=== PATIENT | female | born 1955 | race Two or more races ===

== ENCOUNTER 2018-02-10 19:04 | Emergency (ER) | payer OTHER ==
--- OUTSIDE RECORDS SUMMARY | 2018-02-10 19:09 | XMS REPORT ---
:1955 External Reference #:[id number] Author Organization [employer] Address [address] [place] [address] [place] [address] Phone [phone] Care Team Providers Name Role Phone Halie Evans MD Primary Care Physician Unavailable Payers Type Date Identification Numbers Payment Provider Subscriber Commercial Expires: Policy Number: [employer] Jay Willams 2017 [id number] Group Number: [id number] [address] PayID: [id number] [place] [address] Commercial Policy Number: [id number] [employer] Jayalpesh Paez PayID: [id number] [address] [place] [address] Problems Date Description Provider Status Onset: 06/21/2015 Osteoporosis Halie Evans M.D. Active Onset: 08/13/2015 Impairment of balance July Wray M.D. 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 Every 3 Months Vitamin D / Active Capsules 1000Unit 1 po qd Unknown 0000 Zyrtec / Active Tablets 10mg 1 by mouth Unknown Allergy 0000 every day Epipen 2-Doc / Active Solution 0.3mg/0.3M 2units use as Halie 0000 Auto-Injec L directed Nathan t M.D. Alendronate / Active Tablets 70mg 12tabs take 1 Halie Sodium 0000 tablet by Cotton, mouth M.D. weekly Alendronate 07/29/ Hx Tablets 70mg 13tabs 1 tablet 733.00 Halie Sodium 2013 - once Nathan, 01/10/ weekly. M.D. 2013 take on empty stomach with 8 oz water. do not eat or lie down for 30 min after taking Nabumetone / Hx Tablets 500mg 30tabs 1 po qd prn Halie 0000 - Nathan, 04/30/ M.D. 2012 Immunizations CPT Code Status Date Vaccine Lot # [id number] Given 01/30/2018 Tetanus And Diptheria (Td) For Adult Use [id number] Preservative Free 42908 Given 04/13/2017 Influenza Virus Vaccine, Quadrivalent, Split, Preservative Free [id number] Given 01/27/2016 Flu Vaccine NOS 31305 Given 04/17/2006 Influenza Virus 3Yrs & Over 97424 Given 04/17/2006 Influenza Virus 3Yrs & Over Vital Signs Date Vital Result Comment 01/30/2018 Height 68 inches 5'8" Weight 146.00 lb Heart Rate 62 /min BP Systolic Sitting 121 mmHg BP Diastolic Sitting 77 mmHg O2 % BldC Oximetry 98 % BMI (Body Mass Index) 22.2 kg/m2 03/06/2017 Height 67 inches 5'7" Weight 148.00 lb Heart Rate 76 /min BP Systolic 112 mmHg BP Diastolic 66 mmHg Respiratory Rate 16 /min Body Temperature 96.9 F Pain Level 0 BMI (Body Mass Index) 23.2 kg/m2 01/26/2017 Height 67 inches 5'7" Weight 148.25 lb Heart Rate 65 /min BP Systolic 120 mmHg BP Diastolic 70 mmHg Body Temperature 98.3 F O2 % BldC Oximetry 98 % BMI (Body Mass Index) 23.2 kg/m2 11/02/2016 Height 67 inches 5'7" Weight 152.00 lb Heart Rate 56 /min BP Systolic Sitting 102 mmHg BP Diastolic Sitting 60 mmHg Respiratory Rate 14 /min BMI (Body Mass Index) 23.8 kg/m2 08/13/2015 Height 67 inches 5'7" Weight 140.00 lb Patient reported Heart Rate 64 /min BP Systolic Sitting 108 mmHg BP Diastolic Sitting 64 mmHg Respiratory Rate 16 /min BMI (Body Mass Index) 21.9 kg/m2 07/27/2015 Height 67 inches 5'7" Weight 140.00 lb Heart Rate 64 /min BP Systolic Sitting 108 mmHg BP Diastolic Sitting 68 mmHg Respiratory Rate 14 /min BMI (Body Mass Index) 21.9 kg/m2 06/12/2015 Height 67 inches 5'7" Weight 143.00 lb Heart Rate 66 /min BP Systolic Sitting 112 mmHg BP Diastolic Sitting 60 mmHg Respiratory Rate 15 /min Body Temperature 98.2 F O2 % BldC Oximetry 98 % BMI (Body Mass Index) 22.4 kg/m2 08/28/2014 Height 67 inches 5'7" Weight 134.00 lb Pain Level 0 BMI (Body Mass Index) 21.0 kg/m2 07/17/2014 Height 67 inches 5'7" Weight 134.00 lb Pain Level 0 BMI (Body Mass Index) 21.0 kg/m2 06/19/2014 Height 67 inches 5'7" Heart Rate 60 /min BP Systolic 114 mmHg BP Diastolic 73 mmHg 05/27/2014 Height 67 inches 5'7" Weight 135.00 lb Heart Rate 66 /min BP Systolic 107 mmHg BP Diastolic 73 mmHg BMI (Body Mass Index) 21.1 kg/m2 04/17/2014 Height 67 inches 5'7" Weight 133.00 lb Heart Rate 67 /min BP Systolic 113 mmHg BP Diastolic 70 mmHg BMI (Body Mass Index) 20.8 kg/m2 01/10/2014 Weight 135.50 lb Heart Rate 66 /min BP Systolic Sitting 108 mmHg BP Diastolic Sitting 62 mmHg Body Temperature 97.4 F 07/29/2013 Height 67 inches 5'7" Weight 134.00 lb Heart Rate 72 /min BP Systolic Sitting 100 mmHg BP Diastolic Sitting 68 mmHg Body Temperature 97.6 F BMI (Body Mass Index) 21.0 kg/m2 07/04/2013 Height 67 inches 5'7" Weight 132.00 lb Heart Rate 73 /min BP Systolic 118 mmHg BP Diastolic 69 mmHg BMI (Body Mass Index) 20.7 kg/m2 04/30/2013 Height 67 inches 5'7" Weight 132.00 lb Heart Rate 73 /min BP Systolic 126 mmHg BP Diastolic 74 mmHg BMI (Body Mass Index) 20.7 kg/m2 08/29/2011 Height 68 inches 5'8" Weight 143.00 lb Heart Rate 68 /min BP Systolic Sitting 102 mmHg BP Diastolic Sitting 60 mmHg BMI (Body Mass Index) 21.7 kg/m2 01/24/2011 Height 68 inches 5'8" Weight 141.00 lb Heart Rate 64 /min BP Systolic Sitting 112 mmHg L BP Diastolic Sitting 64 mmHg L BMI (Body Mass Index) 21.4 kg/m2 Results Test Date Test Result H/L Range Note Laboratory test finding 01/30/2018 Cytology <pending> Lipid Profile (Trig/Chol/HDL) 01/22/2018 Triglycerides 75 mg/dL 1 Cholesterol 188 mg/dL 2 HDL Cholesterol 60.9 mg/dL 3 LDL Cholesterol 112 mg/dL 4 Laboratory test finding 01/22/2018 Glucose 87 mg/dL 70-100 5 Vitamin D Total 25(Oh) 41.4 ng/mL 20-50 6 Laboratory test finding 11/03/2017 Garlic Allergen IgE <0.35 kU/L 7 Obrien Pepper Allergen IgE <0.35 kU/L 8 Rast Cow's Milk <0.35 kU/L 9 Mushroom Allergen IgE <0.35 kU/L 10 Onion Allergen IgE <0.35 kU/L 11 Sesame Seed Allergen IgE <0.35 kU/L 12 Cope Allergen IgE <0.35 kU/L 13 Fairplay Seed Allergen IgE <0.35 kU/L 14 Tomato Allergen IgE <0.35 kU/L 15 Rast Wheat <0.35 kU/L 16 Van's Yeast Allergen IgE <0.35 kU/L 17 Miscellaneous Test See Comment 18 Laboratory test finding 06/19/2015 TSH (Thyroid Stim Horm) 1.04 ?IU/mL 0.34-5.60 C Reactive Protein 2.44 mg/L < 5.00 19 Erythrocyte Sed Rate 12 mm/Hr 0-30 CBC Auto Diff 06/19/2015 White Blood Count 7.1 10^3/uL 3.5-10.8 Red Blood Count 4.21 10^6/uL 4.0-5.4 Hemoglobin 12.5 g/dL 12.0-16.0 Hematocrit 38 % 35-47 Mean Corpuscular Volume 90 fL 80-97 Mean Corpuscular Hemoglobin 30 pg 27-31 Mean Corpuscular HGB Conc 33 g/dL 31-36 Red Cell Distribution Width 13 % 10.5-15 Platelet Count 248 10^3/uL 150-450 Mean Platelet Volume 9 um3 7.4-10.4 Abs Neutrophils 4.7 10^3/uL 1.5-7.7 Abs Lymphocytes 2.0 10^3/uL 1.0-4.8 Abs Monocytes 0.4 10^3/uL 0-0.8 Abs Eosinophils 0 10^3/uL 0-0.6 Abs Basophils 0 10^3/uL 0-0.2 Abs Nucleated RBC 0 10^3/uL Granulocyte % 66.0 % 38-83 Lymphocyte % 27.7 % 25-47 Monocyte % 5.2 % 1-9 Eosinophil % 0.6 % 0-6 Basophil % 0.5 % 0-2 Nucleated Red Blood Cells % 0.1 Comp Metabolic Panel 06/19/2015 Sodium 134 mmol/L 133-145 Potassium 4.1 mmol/L 3.5-5.0 Chloride 100 mmol/L Low 101-111 Co2 Carbon Dioxide 29 mmol/L 22-32 Anion Gap 5 mmol/L 2-11 Glucose 106 mg/dL High 70-100 Blood Urea Nitrogen 18 mg/dL 6-24 Creatinine 0.73 mg/dL 0.51-0.95 BUN/Creatinine Ratio 24.7 High 8-20 Calcium 9.5 mg/dL 8.6-10.3 Total Protein 6.6 g/dL 6.4-8.9 Albumin 4.4 g/dL 3.2-5.2 Globulin 2.2 g/dL 2-4 Albumin/Globulin Ratio 2.0 1-3 Total Bilirubin 0.50 mg/dL 0.2-1.0 Alkaline Phosphatase 46 U/L 34-104 Alt 11 U/L 7-52 Ast 14 U/L 13-39 Egfr Non- 81.6 >60 Egfr 104.9 >60 20 Laboratory test 11/03/2014 Surgical Pathology SEE RESULT BELOW 21 finding Surgical Pathology 06/06/2014 S RUN DATE: <SEE NOTE> Laboratory test 07/29/2013 Cytology RUN DATE: finding <SEE NOTE> HPV High Risk 07/29/2013 Human Papillomavirus See Comment 24 Source HPV High Risk Type 16, PCR Negative Negative HPV High Risk Type 18, PCR Negative Negative HPV Other Risk types Negative Negative 25 Lipid Profile (Trig/Chol/HDL) 07/08/2013 Triglycerides 59 mg/dL 40-200 Cholesterol 185 mg/dL Less than 200 HDL Cholesterol 73 mg/dL High 40-60 26 Cholesterol/HDL Ratio 2.5 Average 1-4.44 LDL Cholesterol 100.2 High Less Than 100 27 Protein Electrophoresis 07/08/2013 Total Protein(Pep) 7.3 g/dL 6.3 - 7.9 Albumin 3.7 g/dL 3.4-4.7 Alpha-1 Globulin 0.2 g/dL 0.1-0.3 Alpha-2 Globulin 1.0 g/dL 0.6-1.0 Beta Globulin 0.9 g/dL 0.7-1.2 Gamma Globulin 1.4 g/dL 0.6-1.6 Albumin/Globulin Ratio 1.05 Impression See Comment 28 CBC Auto Diff 07/08/2013 White Blood Count 4.3 10^3/uL Low 4.8-10.8 Red Blood Count 4.33 10^6/uL 4.0-5.4 Hemoglobin 12.8 g/dL 12.0-16.0 Hematocrit 38 % 35-47 Mean Corpuscular Volume 89 fL 80-97 Mean Corpuscular Hemoglobin 30 pg 27-31 Mean Corpuscular HGB Conc 33 g/dL 31-36 Red Cell Distribution Width 13 % 10.5-15 Platelet Count 243 10^3/uL 150-450 Mean Platelet Volume 9 um3 7.4-10.4 Abs Neutrophils 2.2 10^3/uL 1.5-7.7 Abs Lymphocytes 1.6 10^3/uL 1.0-4.8 Abs Monocytes 0.4 10^3/uL 0-0.8 Abs Eosinophils 0.1 10^3/uL 0-0.6 Abs Basophils 0 10^3/uL 0-0.2 Abs Nucleated RBC 0 10^3/uL Granulocyte % 52.3 % 38-83 Lymphocyte % 36.5 % 25-47 Monocyte % 9.0 % 1-9 Eosinophil % 1.7 % 0-6 Basophil % 0.5 % 0-2 Nucleated Red Blood Cells % 0.1 Pthi 07/08/2013 PTH Intact 3.6 pmol/L 1.3-9.0 Calcium (PTH Intact) 9.5 mg/dL 8.1-9.9 Laboratory test finding 07/08/2013 TSH (Thyroid Stimulating 1.52 miu/mL 0.34-5.60 Horm) Comp Metabolic Panel 07/08/2013 Sodium 134 mmol/L 133-145 Potassium 4.2 mmol/L 3.5-5.0 Chloride 102 mmol/L 101-111 Co2 Carbon Dioxide 25.0 mmol/L 22-32 Anion Gap 7.0 mmol/L 2-11 Glucose 92 mg/dL 70-100 Blood Urea Nitrogen 15 mg/dL 6-24 Creatinine 0.70 mg/dL 0.50-1.40 BUN/Creatinine Ratio 21.4 High 8-20 Calcium 9.5 mg/dL 8.1-9.9 Total Protein 7.0 g/dL 6.2-8.1 Albumin 4.2 g/dL 3.6-5.4 Globulin 2.8 g/dL 2-4 Albumin/Globulin Ratio 1.5 1-3 Total Bilirubin 0.8 mg/dL 0.4-1.5 Alkaline Phosphatase 56 U/L 30-110 Alt 18 U/L 14-54 Ast 18 U/L 12-42 Egfr Non- 86.2 >60 Egfr 110.9 >60 29 Vitamin D, 25 Hydroxy 07/08/2013 25-Hydroxy Vitamin D2 <4.0 ng/mL 25-Hydroxy Vitamin D3 42 ng/mL 25-Hydroxy Vitamin D Total 42 ng/mL 30 Vitamin D, 25 Hydroxy 08/29/2011 25-Hydroxy Vitamin D2 <4.0 ng/mL () 25-Hydroxy Vitamin D3 39 ng/mL () 25-Hydroxy Vitamin D Total 39 ng/mL () 31 1 Desirable: <150 Borderline High: 150-199 High: 200-499 Very High: >500 2 Desirable: <200 Borderline High: 200-239 High: >239 3 Low: <40 Desirable: 40-60 High: >60 4 Desirable: <100 Near Optimal: 100-129 Borderline High: 130-159 High: 160-189 Very High: >189 5 FASTING 10 HOUR 6 FASTING 10 HOUR 7 Class 0 (Negative <0.35) Test Performed by: [facility] [place] [address] 8 Class 0 (Negative <0.35) ADDITIONAL INFORMATION This test was developed using an analyte specific reagent. Its performance characteristics were determined by [facility] in a manner consistent with CLIA requirements. This test has not been cleared or approved by the U.S. Food and Drug Administration. Test Performed by: [place] [address] 9 Class 0 (Negative <0.35) Test Performed by: [place] [address] 10 Class 0 (Negative <0.35) ADDITIONAL INFORMATION This test was developed using an analyte specific reagent. Its performance characteristics were determined by [facility] in a manner consistent with CLIA requirements. This test has not been cleared or approved by the U.S. Food and Drug Administration. Test Performed by: [place] [address] 11 Class 0 (Negative <0.35) Test Performed by: [place] [address] 12 Class 0 (Negative <0.35) Test Performed by: [place] [address] 13 Class 0 (Negative <0.35) Test Performed by: [place] [address] 14 Class 0 (Negative <0.35) Test Performed by: [place] [address] 15 Class 0 (Negative <0.35) Test Performed by: [place] [address] 16 Class 0 (Negative <0.35) Test Performed by: [place] [address] 17 Class 0 (Negative <0.35) Test Performed by: [facility] [address] [place] [address] 18 Test Result Flag Unit RefValue Spinach, IgE <0.35 kU/L Class 0 (Negative <0.35) Test Performed by: [address] [address] 19 Acute inflammation: >10.00 20 Because ethnic data is not always readily available, this report includes an eGFR for both -Americans and non- Americans. The National Kidney Disease Education Program (NKDEP) does not endorse the use of the MDRD equation for patients that are not between the ages of 18 and 70, are , have extremes of body size, muscle mass, or nutritional status, or are non- or non-. According to the National Kidney Foundation, irrespective of diagnosis, the stage of the disease is based on the level of kidney function: Stage Description GFR(mL/min/1.73 m(2)) 1 Kidney damage with normal or decreased GFR 90 2 Kidney damage with mild decrease in GFR 60-89 3 Moderate decrease in GFR 30-59 4 Severe decrease in GFR 15-29 5 Kidney failure <15 (or dialysis) 21 SEE RESULT BELOW Name: LULU MIRANDA : [address]: Justin Santiago MD Acct: [id number] Unit: [id number] AGE: 59 Location: [facility] Re11/03/14 SEX: F Status: REG REF SPEC: [id number] RITO: 11/03/14-1230 [facility] DR: Justin Santiago MD REQ: [id number] RECD: 11/03/14 STATUS: VAUGHN DOYLE DR: Halie Evans MD _ ORDERED: LEVEL IV/4 FINAL DIAGNOSIS 1. Colon, at 35 cm, biopsy: -- Hyperplastic polyp. 2. Colon, hepatic flexure, biopsy: -- Hyperplastic polyps. 3. Colon, transverse, biopsy: -- Hyperplastic polyp. 4. Colon, at 45 cm, biopsy: -- Tubular adenoma. -- No high grade dysplasia or malignancy. CLINICAL HISTORY Screening colonoscopy with family history of colon cancer (parents) POST-OPERATIVE DIAGNOSIS Screening colonoscopy into terminal ileum, prep good - 5 polyps removed GROSS DESCRIPTION 1. The specimen is received in formalin labeled, Colon Polyp at 35 cm, and consists of a 0.7 x 0.6 x 0.1 cm mottled trevino ovoid mucosal shave, which is inked, bisected and submitted entirely in one cassette. 2. The specimen is received in formalin labeled, Colon Polyps at Hepatic Flexure, and consists of a 1.2 x 1.1 x 0.5 cm aggregate of multiple trevino irregular to polypoid soft tissue fragments. The largest fragment is inked, trisected and the specimen is submitted entirely in cassettes A and B to include largest fragment in cassettes A. CONTINUED ON NEXT PAGE * ML=Testing performed at Main Lab DEPARTMENT OF PATHOLOGY, [address] [place] [address] Marco Coley M.D. Director TRIP # [id number] RUN DATE: 11/05/14 [facility] LAB LIVE PAGE 2 Patient: LULU MIRANDA [id number] (Continued) GROSS DESCRIPTION (Continued) GROSS DESCRIPTION (Continued) 3. The specimen is received in formalin labeled, Colon Polyp at Transverse , and consists of a 0.8 x 0.5 x 0.3 cm trevino irregular to polypoid soft tissue fragment, which is inked, bisected and submitted entirely in one cassette. 4. The specimen is received in formalin labeled, Colon Polyp at 45 cm, and consists of a 0.9 cm by up to 0.3 x 0.2 cm trevino-white irregular soft tissue fragment, which is submitted entirely in one cassette. Signed (signature on file) Prerna Mcdonough MD 03/12 1324 END OF REPORT * ML=Testing performed at Main Lab DEPARTMENT OF PATHOLOGY, [address] [place] [address] Marco Coley M.D. Director TRIP # [id number] 22 RUN DATE: 06/09/14 [facility] LAB LIVE PAGE 1 RUN TIME: [address] [place] [address] Specimen Inquiry Name: LULU MIRANDA Valentine : [address]: Shantel Rashid MD Acct: [id number] Unit: [id number] AGE: 58 Location: [facility] Re06/06/14 SEX: F Status: REG [facility] SPEC: [id number] RITO: 06/06/14- SUBM DR: Shantel Rashid MD REQ: [id number] RECD: 06/06/14-1107 STATUS: SOUT _ ORDERED: LEVEL I FINAL DIAGNOSIS Right wrist, hardware removal: Foreign body (orthopedic hardware) (Gross diagnosis). PRE-OPERATIVE DIAGNOSIS Tenosynovitis right hand. GROSS DESCRIPTION The specimen is received fresh labeled, Hardware Right Wrist, and consists of a 5.0 cm by up to 2.4 x 0.3 cm nicolas metallic plate with multiple ovoid to circular holes. The following inscription is identified: LOT [id number] [facility]- RIGHT. Received separately in the same container are three pink metallic threaded Niko-headed screws averaging 1.5 cm. The following inscription is identified on two of the screws: 14 MM while the other screw is identified as 16 MM. Received separately in the same container are two blue metallic partially threaded Niko-headed screws averaging 1.7 cm in length and four blue metallic Niko-headed pins ranging from 1.3 cm to 1.8 cm. Per established hospital medical staff protocol, no tissue is submitted. Gross only. Signed (signature on file) Marco Coley MD 1521 END OF REPORT * ML=Testing performed at Main Lab DEPARTMENT OF PATHOLOGY, [facility] [employer] [place] [address] Marco Coley M.D. Director [facility] # [id number] 23 RUN DATE: 07/30/13 [facility] LAB LIVE PAGE 1 RUN TIME: 1205 [facility] [employer] [place], [place] [address] Specimen Inquiry Name: LULU MIRANDA : [address]: Halie Evans MD Acct: [id number] Unit: [id number] AGE: 57 Location: [facility] Re07/29/13 SEX: F Status: REG REF SPEC: [id number] RITO: 07/29/13-1553 [facility] DR: Halie Evans MD REQ: [id number] RECD: 07/29/13-1931 STATUS: SOUT _ ORDERED: IMAGE ANALYSIS, HPV/Thin Prep FINAL DIAGNOSIS Negative for Intraepithelial lesion or Malignancy COMMENTS: Specimen sent to [facility] in [place], [place] on 07/30/13 by [id number] at 1201. Results will be reported separately. A. Ectocervical/Endocervical Specimen Adequacy: Satisfactory of evaluation Transformation zone component identified Patient Information: HPV: High risk HPV DNA testing regardless of pap results. Actual Specimen Date: 07/29/13 LMP If Unknown: age 39 ?: N Post Menopausal?: Y Hysterectomy?: N Previous Abnormal Pap Smears?:N Signed (signature on file) DEMETRI Reid (ASCP) 07/30/13 1205 This Pap test was evaluated with the assistance of the [employer] Platform[employer] Test Imaging System. Due to cytologic findings at the director nursing service microscope, comprehensive manual rescreening by a Bag Liner may be required. The Pap Smear is a screening test designed to aid in the detection of premalignant and malignant conditions of the uterine cervix. It is not a diagnostic procedure and should not be used as the sole means of detecting cervical cancer. Both false- positive and false- negative reports do occur. Depending on your risk status, a Pap smear shoudl be obtained and evaluated every 1-3 years. END OF REPORT * ML=Testing performed at Main Lab DEPARTMENT OF PATHOLOGY, [address] [place] [address] Marco Coley M.D. Director [facility] Permit #[id number] RESULT: Ectocervical/Endocervical 25 The following Other High Risk HPV types were not detected: 31, 33, 35, 39, 45, 51, 52, 56, 58, 59, 66, and 68 Test Performed by: [place] [address] Dopeman: Claude Mcmahon III, M.D. 26 HDL Interpretation: Undesirable: High Risk: Less than 40 mg/dL Desirable: Low Risk: Greater than 60 mg/dL 27 LDL Interpretation: Low Risk Optimal Level: LDL Less than 100 mg/dL Near or Above Optimal: LDL 100-129 mg/dL Borderline High Risk: LDL 130-159 mg/dL High Risk: LDL 160-189 mg/dL Very High Risk: LDL Greater than 189 mg/dL 28 RESULT: No apparent monoclonal protein on serum electrophoresis. Test Performed by: [place] [address] Dopeman: Claude Mcmahon III, M.D. 29 Because ethnic data is not always readily available, this report includes an eGFR for both -Americans and non- Americans. The National Kidney Disease Education Program (NKDEP) does not endorse the use of the MDRD equation for patients that are not between the ages of 18 and 70, are , have extremes of body size, muscle mass, or nutritional status, or are non- or non-. According to the National Kidney Foundation, irrespective of diagnosis, the stage of the disease is based on the level of kidney function: Stage Description GFR(mL/min/1.73 m(2)) 1 Kidney damage with normal or decreased GFR 90 2 Kidney damage with mild decrease in GFR 60-89 3 Moderate decrease in GFR 30-59 4 Severe decrease in GFR 15-29 5 Kidney failure <15 (or dialysis) 30 -- REFERENCE VALUE -- 25-HYDROXY D TOTAL (D2+D3) Optimum levels in the healthy population are 20-50, patients with bone disease may benefit from higher levels within this range. Test Performed by: [place] [address] Dopeman: Claude Mcmahon III, M.D. 31 -- REFERENCE VALUE -- 25-HYDROXY D TOTAL (D2+D3) Optimum levels in the normal population are 25-80 Test Performed by: [facility] Dpt of Lab Med and Pathology [address] [place] [address] Dopeman: Claude Mcmahon III, M.D. Procedures Date CPT Code Description Status 05/03/2017 Mammogram Completed 02/07/2017 27967 Nerve Conduction 03-04 Studies Completed 02/07/2017 34197 Needle Electromyography Complete, Five Or More Muscles Completed Studied 06/26/2015 Mammogram Completed 11/04/2014 Colonoscopy Completed 06/06/2014 95135 Removal Implant Deep Wire,Screw Nail,Dileep Or Plate Completed 06/06/2014 72211 Repair Flexor Tendon/Muscle Forearm/Wrist Primary Completed 04/17/2014 68781 Rad Exam; Wrist, Comp, Min 3 Views Completed 07/04/2013 25799 Rad Exam; Wrist Limited, 2 Views Completed 06/03/2013 Bone Mineral Density Test Completed 05/30/2013 23552 Rad Exam; Wrist, Comp, Min 3 Views Completed 05/17/2013 53147 Open TX Distal Radial Extra-Ar Completed 04/30/2013 40681 Short Arm Cast Application Completed 04/30/2013 11825 CLST TRMT Distal Radial FX Completed 11/14/2011 Mammogram Completed 08/29/2011 85521 EKG Tracing & Interpretation Completed 02/22/2010 Mammogram Completed 07/20/2009 Colonoscopy Completed 02/04/2008 Bone Mineral Density Test Completed 09/17/2007 30039 EKG Tracing & Interpretation Completed Encounters Type Date Location Provider CPT E/M Dx Office Visit 03/06/2017 [facility] Shantel Rashid 57173 G56.12 10:00a Of Anahy Laguerre Office Visit 01/26/2017 [facility] Internal Medicine Halie Evans 42882 Z00.00 2:40p Debra Voss M.D. G56.12 Z12.31 Office Visit 11/02/2016 8:45a [facility] July Wray M.D. 17203 G25.0 Services Of Kori R26.81 Office Visit 08/13/2015 4:00p [facility] July Wray M.D. 70612 R29.6 Services Of Interface Engineer R29.2 R33.9 Office Visit 07/27/2015 9:00a [facility] July Wray M.D. 57553 M54.2 Services Of [facility] R29.2 R33.9 R29.6 G25.0 Office Visit 06/12/2015 4:20p [facility] Internal Medicine Halie Evans 39603 L50.1 - Shanika Laguerre R53.1 Z12.31 R29.6 Office Visit 04/17/2014 8:30a [facility] Shantel Rashid 43848 727.05 Of Anahy Laguerre Office Visit 01/10/2014 11:20a [facility] Internal Medicine Roxanne Dozier, N.PPrasanth 64796 716.94 - [place] Office Visit 07/29/2013 3:00p [facility] Internal Medicine Halie Evans 33482 V70.0 - Shanika Laguerre V72.31 V76.2 V76.10 733.00 238.2 Office Visit 08/29/2011 1:20p [facility] Internal Medicine Halie Evans 37374 V70.0 - Shanika Laguerre 733.90 272.4 V76.10 729.5 238.2 Office Visit 01/24/2011 1:00p DO Not Use Roxanne Dozier 09860 844.9 Interface Engineer-[place] N.P. Office Visit 12/07/2009 1:45p DO Not Use Roxanne [place] [id number] V72.31 [facility] [place] [facility] Office Visit 09/22/2008 3:15p DO Not Use Alexia Robb [id number] V72.31 [facility] M.Ninoska 733.90 Office Visit 09/17/2007 2:15p DO Not Use Alexia Robb [id number] V72.31 [facility] Lopez.Ninoska Office Visit 06/02/2006 2:45p DO Not Use Alexia Robb [id number] V72.31 [facility] M.DPrasanth Plan of Care Future Appointment(s):02/01/2019 11:00 am - Halie Evans M.D. at [facility] - Fyerwpkxu35/04/2018 - Halie Evans M.D.Z00.00 Encntr for general adult medical exam w/o abnormal findingsComments:~B_VACCINES:~b_Flu shot every year in the fall.Tetanus: last one done in 2006Pneumonia vaccines: at age 65Shingles vaccine: There is a new shingles vaccine - Shingrix. 90% effective.This is available at pharmacies. Series of 2 shots, given 2-6 months apart. Most people get a flu-like reaction. Cost isabout $400 - call your insurance about coverage. ~B_SCREENING:~b_Colonoscopy: last one done in 2014, next due in 2019Mammogram: last done 05/03/17Pap smear: last done in 2013, pap smear was normal and HPV was negativeSkin checks: Dr. Villarreal once a yearBone density (DEXA): last done in 2013, rechecknext year before physicalCholesterol: just checked - still very goodFollow up:1 yearZ12.4 Encounter for screening for malignant neoplasm of ktoohpA59.31 Encntr screen mammogram for malignant neoplasm of hmgoyiK52.0 Age-related osteoporosis w/o current pathological fractureComments:Finish alenodronate in August 2018
[2018-02-10 19:12] VITALS: BP 134/76
[2018-02-10] MEDS ORDERED: Lidocaine 1%* 5 ML VIAL INJ ONE (19:20)
--- NOTE | 2018-02-10 19:25 | UC ---
Upper Extremity HPI - HPI Summary HPI Summary: This patient is a 62 year old female presenting to [facility] with a chief complaint of infected left middle finger since 8 days ago. Patient states she has had an infected nail under her left middle finger and has been treating it for the past 8 days, but treatment has not been effective. Patient states that the infection is worsening today. The pain is rated 0/10 in severity. Symptoms aggravated by palpation. Symptoms alleviated by nothing. 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 Onset/Duration: Lasting Days, Still Present Severity Currently: Mild Pain Intensity: 0 Pain Scale Used: 0-10 Numeric Location Of Pain: Is Discrete @ - left middle finger nail Aggravating Factor(s): Other - palpation Alleviating Factor(s): Nothing - Allergies/Home Medications Allergies/Adverse Reactions: Allergies Allergy/AdvReac Type Severity Reaction Status Date / Time ibuprofen Allergy Swelling Verified 02/10/18 19:14 Of Face,Lips,& Throat nabumetone [From Relafen] Allergy Swelling Verified 02/10/18 19:14 Of Face,Lips,& Throat PMH/Surg Hx/FS Hx/Imm Hx Previously Healthy: Yes Other Endocrine History: Negative: Diabetes Other Respiratory History: Negative: COPD - Surgical History Surgical History: Yes Surgery Procedure, Year, and Place: 2006 RIGHT WRIST FRACTURE WITH ORIF, [facility]. 2013 LEFT WRIST FRACTURE WITH ORIF, [facility]. LEFT HAMMERTOE A CHILD, [place]. RT WRIST TENDON REPAIR,2014 - Family History Known Family History: Positive: Hypertension - Social History Alcohol Use: Weekly Alcohol Amount: 1 PER WEEK Substance Use Type: None Smoking Status (MU): Never Smoked Tobacco Review of Systems Constitutional: Negative - fever Skin: Other - erythema to left middle finger All Other Systems Reviewed And Are Negative: Yes Physical Exam - Summary Physical Exam Summary: Appearance: Well-appearing, Well-nourished Skin: Paronychia on left middle finger Eyes: Normal, PERRL, EOMI, sclera anicteric ENT: Normal Neck: Supple, nontender Respiratory: Clear to auscultation Cardiovascular: S1, S2, no murmur, no rub, no gallop Abdomen: Soft, nontender, no organomegaly Bowel sounds: Present Musculoskeletal: Normal, Strength/ROM Intact, no edema, pulses symmetrical Neurological: Normal, A&Ox3, cranial nerves II-XII WNL, follows commands, gait not tested, sensation intact to pin and light touch Psychiatric: affect normal, behavior appropriate, dressed appropriately, judgment intact Triage Information Reviewed: Yes Vital Signs: Initial Vital Signs Temp 98.1 F 02/10/18 19:08 Pulse 58 02/10/18 19:08 Resp 16 02/10/18 19:08 BP 134/76 02/10/18 19:08 Pulse Ox 100 02/10/18 19:08 Procedures - Incision and Drainage Left Upper Distal Finger Dorsal Anesthesia: Digital Instrument(s): Scalpel Packing: Other - No Packing Necessary, No splinting necessary Upper Extremity Course/Dx - Course Course Of Treatment: This patient is a 62 year old female presenting to [facility] with a chief complaint of infected left middle finger since 8 days ago. Patient states she has had an infected nail under her left middle finger and has been treating it for the past 8 days. Incision and Drainage procedure completed with 1% lidocaine. Patient will be discharged with dx of paronychia and advised to follow up with PCP if sx do not clear. The patient is agreeable with this plan. - Differential Dx/Diagnosis Provider Diagnoses: Paronychia of left middle finger Discharge - Sign-Out/Discharge Documenting (check all that apply): Patient Departure All imaging exams completed and their final reports reviewed: No Studies - Discharge Plan Condition: Stable Disposition: HOME Patient Education Materials: Paronychia (ED) Referrals: Halie Evans MD [Primary Care Provider] - - Billing Disposition and Condition Condition: STABLE Disposition: Home - Attestation Statements Document Initiated by Scribe: Yes Documenting Scribe: Kelly Gilliland Provider For Whom Yissel is Documenting (Include Credential): Supa Kinney MD Scribe Attestation: Kelly Leon scribed for Supa Kinney MD on 02/16/18 at 1830. Scribe Documentation Reviewed: Yes Provider Attestation: The documentation as recorded by the Kelly leslie accurately reflects the service I personally performed and the decisions made by me, Supa Kinney MD
== END 2018-02-10 20:10 | disposition home or self-care (01) ==
LOC: UCEAST 19:04
DX: L03.012 Cellulitis of left finger (principal); Z88.6 Allergy status to analgesic agent
CPT/HCPCS: 10060; 99211; G0463

== ENCOUNTER 2018-05-27 19:22 | Emergency (ER) | payer OTHER ==
[2018-05-27 19:51] VITALS: BP 152/73
[2018-05-27] MEDS ORDERED: HYDROcodone/ACETAMIN 5-325 MG* 1 TAB PO ONE (20:06)
--- NOTE | 2018-05-27 20:11 | UC ---
Lower Extremity/Ankle HPI - HPI Summary HPI Summary: 62-year-old woman comes in to clinic today with a chief complaint of right inner thigh pain. 2 days ago while she was exercising she had sudden onset of pain in the right inner thigh. She rested and take acetaminophen which helped with the pain and then she started exercising and the pain got much worse. Pain is worse with any kind of movement. No weakness or numbness no hip pain or knee pain. Patient reports she is not concerned of a deep venous thrombosis and she isn't in this muscle before and she is sure that it is actually a muscle injury. 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 Pain Intensity: 6 - Allergies/Home Medications Allergies/Adverse Reactions: Allergies Allergy/AdvReac Type Severity Reaction Status Date / Time ibuprofen Allergy Swelling Verified 05/27/18 19:51 Of Face,Lips,& Throat nabumetone [From Relafen] Allergy Swelling Verified 05/27/18 19:51 Of Face,Lips,& Throat Home Medications: Home Medications Acetaminophen [Non-Aspirin Extra Strengt] 500 mg PO ONCE PRN 05/27/18 [History Confirmed 05/27/18] Cetirizine* [ZyrTEC 10 MG TAB*] 5 mg PO EVERY OTHER DAY 05/27/18 [History Confirmed 05/27/18] PMH/Surg Hx/FS Hx/Imm Hx Previously Healthy: Yes - Surgical History Surgical History: Yes Surgery Procedure, Year, and Place: 2005 RIGHT WRIST FRACTURE WITH ORIF, [facility]. 2013 LEFT WRIST FRACTURE WITH ORIF, [facility]. LEFT [place] A CHILD, [place]. RT WRIST TENDON REPAIR,2015 - Family History Known Family History: Positive: Hypertension - Social History Alcohol Use: Weekly Alcohol Amount: 1 PER WEEK Substance Use Type: None Smoking Status (MU): Never Smoked Tobacco Review of Systems All Other Systems Reviewed And Are Negative: Yes Constitutional: Positive: Negative Skin: Positive: Negative Eyes: Positive: Negative ENT: Positive: Negative Respiratory: Positive: Negative Cardiovascular: Positive: Negative Gastrointestinal: Positive: Negative Motor: Positive: Negative Neurovascular: Positive: Negative Musculoskeletal: Positive: Other: - Patient is tender to palpation on the medial aspect of the right thigh. She is increased pain with right hip flexion and right knee extension and adduction of the thigh. He is to nontender to palpation. Calf is nontender to palpation ankle has full range of motion and full strength. Neurological: Positive: Negative Psychological: Positive: Negative Is Patient Immunocompromised?: No Physical Exam Triage Information Reviewed: Yes Appearance: Well-Appearing, Well-Nourished, Pain Distress - mild with movement of right thigh Vital Signs: Initial Vital Signs Temp 98 F 05/27/18 19:48 Pulse 66 05/27/18 19:48 Resp 16 05/27/18 19:48 BP 152/73 05/27/18 19:48 Pulse Ox 100 05/27/18 19:48 Vital Signs Reviewed: Yes Eye Exam: Normal Eyes: Positive: Conjunctiva Clear Neck exam: Normal Neck: Positive: Supple Respiratory: Positive: No respiratory distress Musculoskeletal: Positive: Other: - Patient is tender to palpation on the medial aspect of the right thigh. She is increased pain with right hip flexion and right knee extension and adduction of the thigh. He is to nontender to palpation. Calf is nontender to palpation ankle has full range of motion and full strength. Neurological Exam: Normal Neurological: Positive: Alert Psychological Exam: Normal Psychological: Positive: Age Appropriate Behavior Skin Exam: Normal Lower Extremity Course/Dx - Course Course Of Treatment: No calf tenderness. Pain is worse with movement. I suspect a strain of either the adductor or the gracilis. At this time based on history and physical examination this does not appear to be a deep venous thrombosis. Plan here is crutches ice rests pain medicines as needed and follow -up with sports medicine and or physical therapy. - Differential Dx/Diagnosis Provider Diagnosis: Muscle strain of right thigh Discharge - Sign-Out/Discharge Documenting (check all that apply): Patient Departure All imaging exams completed and their final reports reviewed: No Studies - Discharge Plan Condition: Stable Disposition: HOME Prescriptions: HYDROcodone/ACETAMIN 5-325 MG* [[place] 5-325 TAB*] 1 tab PO Q4H PRN #20 tab MDD 6 PRN Reason: Pain Patient Education Materials: Muscle Strain (ED) Forms: *Physical Education Release Referrals: Halie Evans MD [Primary Care Provider] - Javier Marshall [Medical Doctor] - Muriel Gee MD [Medical Doctor] - Tristin Sadler MD [Medical Doctor] - Additional Instructions: FOLLOW UP WITH YOUR PRIMARY DOCTOR OR SPORTS MEDICINE AND/OR PHYSICAL THERAPY. GET RECHECKED FOR ANY WORSENING OF YOUR CONDITION OR QUESTIONS OR CONCERNS. - Billing Disposition and Condition Condition: STABLE Disposition: Home
== END 2018-05-27 20:26 | disposition home or self-care (01) ==
LOC: UCEAST 19:22
DX: S76.911A Strain of unspecified muscles, fascia and tendons at thigh level, right thigh, initial encounter (principal); X58.XXXA Exposure to other specified factors, initial encounter; Y93.9 Activity, unspecified; Y92.9 Unspecified place or not applicable
CPT/HCPCS: 99213; G0463